=== PATIENT | male | born 1955 | race Caucasian/White ===

== ENCOUNTER 2021-08-02 08:58 | Emergency (ER) | payer MEDICARE ==
[~2021-08-02] VITALS: Ht 170.2 cm; Wt 82.0 kg
[2021-08-02] MEDS ORDERED: LEVETIRACETAM 1000MG PREMIX 100 ML IV ONE (09:15)
[2021-08-02 09:32] LABS: BASOPHILS % 0.6 % (0.0-2.0); EOSINOPHILS % 2.6 % (0.0-5.0); HEMATOCRIT. 41.1 % (42.0-52.0); HEMOGLOBIN. 14.2 g/dL (14.0-18.0); LYMPHOCYTES % 20.5 % (20.0-50.0); MEAN CORPUSCULAR HEMOGLOBIN 31.3 pg (28.0-32.0); MEAN CORPUSCULAR VOLUME 90.5 fL (80.0-94.0); MEAN PLATELET VOLUME 9.7 fl (7.4-10.4); MONOCYTES % 5.7 % (2.0-8.0); NEUTROPHILS % 70.6 % (40.0-76.0); PLATELET 154 x1000/uL (130-400); RED BLOOD CELL COUNT 4.53 mill/uL (4.7-6.1)
[2021-08-02 09:38] LABS: CHLORIDE 101 mEq/L (98-107)
[2021-08-02 09:42] LABS: ETHANOL BLOOD < 10 mg/dL
[2021-08-02] MEDS ORDERED: INSULIN REGULAR (HUMULIN R) 300UNITS/3ML VIAL IV ONE (10:15)
[2021-08-02 12:45] VITALS: BP 124/64
== END 2021-08-02 13:07 | disposition home or self-care (01) ==
LOC: ER 09:19
DX: R56.9 Unspecified convulsions (principal); E11.9 Type 2 diabetes mellitus without complications
CPT/HCPCS: 36415; 80053; 80320; 82962; 85025; 96365; 96375; 99284; J1815; J1953; G0480